=== PATIENT | female | born 1945 | race Caucasian/White ===

== ENCOUNTER 2017-10-05 08:13 | Day surgery (SDC) | payer OTHER, MEDICAID ==
[~2017-10-05] VITALS: Ht 152.4 cm; Wt 58.1 kg
[2017-10-05] MEDS ORDERED: LevALBUTEROL HCL 1.25 MG/0.5 ML *CONC.* VIAL.NEB (XOPENEX CONC.) INH ONE ×2 (10:15→11:11)
[2017-10-05] MEDS ORDERED: CLINDAMYCIN 600 mg/50mL D5W 50 ML IV ONE (10:43)
[2017-10-05] MEDS ORDERED: ONDANSETRON HCL 4 MG/2 ML VIAL IVP ONE (11:45)
[2017-10-05] MEDS ORDERED: fentaNYL CITRATE 250 MCG/5 ML AMP IV ONE (11:45)
[2017-10-05] MEDS ORDERED: SEVOFLURANE 15 MIN GAS INH ONE (11:45)
[2017-10-05] MEDS ORDERED: BUPIVACAINE /PF 0.25% 30 ML VIAL INJ ONE (11:45)
[2017-10-05] MEDS ORDERED: ROCURONIUM BROMIDE 10 MG/ML (ZEMURON) IV ONE (11:45)
[2017-10-05] MEDS ORDERED: NS IRRIG SOLN 1000 ML IR ONE (11:45)
[2017-10-05] MEDS ORDERED: DEXAMETHASONE SOD PHOSPHATE 4 MG/ML VIAL IVP ONE (11:45)
[2017-10-05] MEDS ORDERED: PROPOFOL 200MG/ 20ML VIAL (DIPRIVAN) IV ONE (11:45)
[2017-10-05] MEDS ORDERED: KETOROLAC TROMETHAMINE 15 MG VIAL IVP ONE (11:45)
[2017-10-05] MEDS ORDERED: MEPERIDINE HCL/PF 25 MG/ML DISP.SYRIN IVP PRN (13:00)
[2017-10-05] MEDS ORDERED: HYDROmorphone 2 MG/ML VIAL IVP PRN ×2 (13:00)
[2017-10-05] MEDS ORDERED: HYDROmorphone 1 MG INJ. 1 MG/ML AMPUL IVP PRN (13:00)
[2017-10-05] MEDS ORDERED: LR 1,000 ML IV SCH (13:00)
[2017-10-05] MEDS ORDERED: D5/0.45 NS 1,000 ML IV SCH (13:08)
[2017-10-05] MEDS ORDERED: HYDROmorphone 2 MG/ML VIAL ONE (13:35)
[2017-10-05 17:17] VITALS: BP_SYST 130
== END 2017-10-05 15:25 | disposition home or self-care (01) ==
LOC: SDS 08:13 → SMU 08:14 → EDSTATUS 11:45 → SDS 15:25
PROVIDERS: ATTEND Colon & Rectal Surgery
DX: D05.12 Intraductal carcinoma in situ of left breast (principal); N60.92 Unspecified benign mammary dysplasia of left breast; I10 Essential (primary) hypertension; K21.9 Gastro-esophageal reflux disease without esophagitis; J31.0 Chronic rhinitis; M19.90 Unspecified osteoarthritis, unspecified site; R73.03 Prediabetes; J45.998 Other asthma; Z88.8 Allergy status to other drugs, medicaments and biological substances; Z88.5 Allergy status to narcotic agent; Z88.6 Allergy status to analgesic agent; Z88.1 Allergy status to other antibiotic agents; Z79.1 Long term (current) use of non-steroidal anti-inflammatories (NSAID); Z79.891 Long term (current) use of opiate analgesic; Z79.899 Other long term (current) drug therapy; Z90.710 Acquired absence of both cervix and uterus; Z90.49 Acquired absence of other specified parts of digestive tract; Z98.890 Other specified postprocedural states; Z86.19 Personal history of other infectious and parasitic diseases; Z80.1 Family history of malignant neoplasm of trachea, bronchus and lung
CPT/HCPCS: 19081; 19301; 76098; 88305; 94640; J1100; J1170; J1885; J2405; J2704; J3010; J3490 ×2; J7120